=== PATIENT | male | born 1955 | race Two or more races ===

== ENCOUNTER 2017-11-27 13:25 | Emergency (ER) | payer OTHER ==
[~2017-11-27] VITALS: Ht 170.2 cm; Wt 66.0 kg
[~2017-11-27 13:25] MED LIST: ASPI81TA52 PO; LORA-269 PO; PER10325T PO; TRAZ-218 PO; WALKERFR
[2017-11-27] MEDS ORDERED: SULF1TAB49 PO (14:54)
[2017-11-27] MEDS ORDERED: CefTRIAXone 1000mg IM Kit (w/lidocaine diluent) IM ONE (14:55)
[2017-11-27] MEDS ORDERED: sulfamethoxazole/trimethoprim DS (800/160mg) tablet PO ONE (14:55)
[2017-11-27 15:07] VITALS: BP 126/87
[2017-11-30] MEDS ORDERED: CEPH-572 PO (18:08)
== END 2017-11-27 15:09 | disposition home or self-care (01) ==
LOC: ER 13:25
DX: L03.115 Cellulitis of right lower limb (principal); Z87.891 Personal history of nicotine dependence; Z98.890 Other specified postprocedural states
CPT/HCPCS: 93971; 96372; 99284; J0696

== ENCOUNTER 2017-12-04 09:18 | Emergency (ER) | payer OTHER ==
[~2017-12-04] VITALS: Ht 165.1 cm; Wt 63.5 kg
[~2017-12-04 09:18] MED LIST changes: +CEPH-572 PO; +SULF1TAB49 PO
[2017-12-04 09:28] VITALS: BP 133/78
== END 2017-12-04 10:17 | disposition home or self-care (01) ==
LOC: ER 09:19
DX: L03.115 Cellulitis of right lower limb (principal); Z79.82 Long term (current) use of aspirin; Z79.2 Long term (current) use of antibiotics; Z79.899 Other long term (current) drug therapy; Z98.890 Other specified postprocedural states
CPT/HCPCS: 99281

== ENCOUNTER 2018-11-01 14:34 | Emergency (ER) | payer OTHER, MEDICARE ==
[~2018-11-01] VITALS: Ht 170.2 cm; Wt 65.9 kg
[~2018-11-01 14:34] MED LIST changes: -CEPH-572 PO; -SULF1TAB49 PO; -TRAZ-218 PO; +TRAZ-251 PO
[2018-11-01 14:44] VITALS: BP 140/80
== END 2018-11-01 15:45 | disposition home or self-care (01) ==
LOC: ER 14:34
DX: F10.129 Alcohol abuse with intoxication, unspecified (principal); Z98.890 Other specified postprocedural states; Y90.9 Presence of alcohol in blood, level not specified
CPT/HCPCS: 99284

== ENCOUNTER 2019-03-27 14:16 | Emergency (ER) | payer OTHER, MEDICARE ==
[~2019-03-27] VITALS: Ht 170.2 cm; Wt 68.2 kg
[2019-03-27] MEDS ORDERED: CEPH500C5 PO (14:53)
[2019-03-27] MEDS ORDERED: SULF1TAB49 PO (14:53)
[2019-03-27] MEDS ORDERED: LIDOcaine 1% W/epiNEPHrine 1:100,000 20ml vial SQ ONE (15:05)
[2019-03-27 15:34] VITALS: BP 154/93
--- NOTE | 2019-03-27 15:35 | NUR ---
dressed wound with 4x4 and coban
== END 2019-03-27 15:34 | disposition home or self-care (01) ==
LOC: ER 14:16
DX: L02.414 Cutaneous abscess of left upper limb (principal); L03.114 Cellulitis of left upper limb; F10.99 Alcohol use, unspecified with unspecified alcohol-induced disorder; Z98.890 Other specified postprocedural states; Z79.82 Long term (current) use of aspirin; Z79.899 Other long term (current) drug therapy; Y90.9 Presence of alcohol in blood, level not specified
CPT/HCPCS: 10060; 99284